=== PATIENT | female | born 1980 | race American Indian/Alaskan Native ===

== ENCOUNTER 2018-01-28 21:26 | Emergency (ER) | payer BC | END 2018-01-29 01:50 | disposition left against medical advice (07) | LOC: ED 21:26 | DX: T78.40XA Allergy, unspecified, initial encounter (principal); Z91.010 Allergy to peanuts; Z88.0 Allergy status to penicillin; Z53.21 Procedure and treatment not carried out due to patient leaving prior to being seen by health care provider ==